=== PATIENT | female | born 2000 | race Caucasian/White ===

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

== ENCOUNTER 2019-03-16 22:18 | Emergency (ER) | payer SELFPAY ==
--- NOTE | 2019-03-16 23:00 | ER Document Report ---
ED General - General Chief Complaint: Vaginal Bleeding Stated Complaint: VAGINAL BLEEDING Time Seen by Provider: 03/16/19 22:59 TRAVEL OUTSIDE OF THE U.S. IN LAST 30 DAYS: No - HPI Patient complains to provider of: vaginal bleeding/ Notes: patient reports being approximately 6 weeks by her report started having lower abdominal cramping and vaginal bleeding this afternoon no back pain no nausea/vomiting has not established w/ obgyn yet denies urinary pain - Related Data Allergies/Adverse Reactions: No Known Allergies Allergy (Unverified 03/17/19 02:46) Past Medical History - Social History Smoking Status: Unknown if Ever Smoked Family History: Reviewed & Not Pertinent Review of Systems - Review of Systems Constitutional: No symptoms reported EENT: No symptoms reported Cardiovascular: No symptoms reported Respiratory: No symptoms reported Gastrointestinal: Abdominal pain. denies: Nausea, Vomiting Genitourinary: No symptoms reported Female Genitourinary: , Vaginal bleeding Musculoskeletal: No symptoms reported Skin: No symptoms reported Hematologic/Lymphatic: No symptoms reported Neurological/Psychological: No symptoms reported Physical Exam - Vital signs Vitals: Temp Pulse Resp BP Pulse Ox 98.3 F 90 20 132/83 H 99 03/16/19 22:30 03/16/19 22:30 03/16/19 22:30 03/16/19 22:30 03/16/19 22:30 Interpretation: Normal - General General appearance: Appears well, Alert - HEENT Head: Normocephalic, Atraumatic Eyes: Normal Pupils: PERRL - Respiratory Respiratory status: No respiratory distress Chest status: Nontender Breath sounds: Normal Chest palpation: Normal - Cardiovascular Rhythm: Regular Heart sounds: Normal auscultation Murmur: No - Abdominal Inspection: Normal Distension: No distension Bowel sounds: Normal Tenderness: Nontender Organomegaly: No organomegaly - Back Back: Normal, Nontender - Extremities General upper extremity: Normal inspection, Nontender, Normal color, Normal ROM, Normal temperature General lower extremity: Normal inspection, Nontender, Normal color, Normal ROM, Normal temperature, Normal weight bearing. No: Annie's sign - Neurological Neuro grossly intact: Yes Cognition: Normal Orientation: AAOx4 [place] Coma Scale Eye Opening: Spontaneous [place] Coma Scale Verbal: Oriented [place] Coma Scale Motor: Obeys Commands Blayne Coma Scale Total: 15 Speech: Normal Motor strength normal: LUE, RUE, LLE, RLE Sensory: Normal - Psychological Associated symptoms: Normal affect, Normal mood - Skin Skin Temperature: Warm Skin Moisture: Dry Skin Color: Normal Course - Re-evaluation Re-evalutation: 03/17/19 00:21 patient reports w/ vaginal bleeding and abd pain will confirm and then obtain an US to evaluate for location of once is confirmed 03/17/19 01:25 US with no definitive IUP located ectopic not excluded patient needs 48 hr follow up with ED or OBGYN await blood type for dispo 03/17/19 02:54 no need for rhogam urine dirty - treat w/ amoxil - Vital Signs Vital signs: Temp Pulse Resp BP Pulse Ox 98.3 F 90 20 132/83 H 99 03/16/19 22:30 03/16/19 22:30 03/16/19 22:30 03/16/19 22:30 03/16/19 22:30 - Laboratory Result Diagrams: 03/16/19 23:46 Laboratory results interpreted by me: 03/16/19 03/17/19 23:46 00:00 Beta HCG, Quant 362.71 H Urine Protein 100 H Urine Blood LARGE H Ur Leukocyte Esterase TRACE H - Diagnostic Test Radiology reviewed: Reports reviewed Discharge - Discharge Clinical Impression: Vaginal bleeding affecting early , Elevated blood pressure reading UTI (urinary tract infection) Qualifiers: Urinary tract infection type: acute cystitis Hematuria presence: without hematu romy Qualified Code(s): N30.00 - Acute cystitis without hematuria Condition: Stable Disposition: HOME, SELF-CARE Instructions: Amoxicillin ([facility]), Urinary Tract Infection ([facility]) Additional Instructions: take amoxicillin for UTI return to ED or follow up with OBGYN in 2-3 days for repeat blood work +/- ultrasound return to ED sooner if symptoms worsen Prescriptions: Amoxicillin 1 tab PO TID #21 tab Referrals: LEELEE HER MD [ACTIVE STAFF] - Follow up as needed
[2019-03-16 23:56] LABS: ABSOLUTE EOSINOPHILS # (AUTO) 0.2 10^3/uL (0.0-0.6); ABSOLUTE LYMPHOCYTES (AUTO) 3.8 10^3/uL (0.5-4.7); ABSOLUTE MONOCYTES (AUTO) 0.9 10^3/uL (0.1-1.4); ABSOLUTE NEUT (AUTO) 4.2 10^3/uL (1.7-8.2); BASOPHILS % (AUTO) 0.4 % (0-2); EOSINOPHILS % (AUTO) 2.3 % (0-6); HEMATOCRIT 39.2 % (36.0-47.0); HEMOGLOBIN 13.3 g/dL (12.0-15.5); LYMPHOCYTES % (AUTO) 41.4 % (13-45); MEAN CORPUSCULAR HEMOGLOBIN 30.8 pg (27.0-33.4); MEAN CORPUSCULAR VOLUME 91 fl (80-97); MONOCYTES % (AUTO) 9.7 % (3-13); PLATELET COUNT 239 10^3/uL (150-450); RED BLOOD COUNT 4.33 10^6/uL (3.72-5.28); RED CELL DISTRIBUTION WIDTH 13.4 % (11.5-14.0); SEGMENTED NEUTROPHILS % (AUTO) 46.2 % (42-78); TOTAL CELLS COUNTED % (AUTO) 100 %; WHITE BLOOD COUNT 9.1 10^3/uL (4.0-10.5)
--- NOTE | 2019-03-17 01:23 | RADIOLOGY REPORT (SQ) ---
EXAM DESCRIPTION: US TRANSVAGINAL COMPLETED DATE/TME: 03/17/2019 00:00 CLINICAL HISTORY: 18 years, Female, bleeding/ COMPARISON: None. TECHNIQUE: Transverse and longitudinal transvaginal sonographic images of the pelvis in a patient LIMITATIONS: None. FINDINGS: The uterus measures 7.7 x 5.2 x 3.5 cm. Cervical length is 2.8 cm. The endometrium was not measured by the civil estimator however there is no intrauterine gestational sac. The myometrium is normal. The maternal right ovary measures 3.6 x 1.7 x 1.8 cm, the left 2.7 x 1.4 x 1.6 cm. Normal flow to each ovary. There is a questionable subcentimeter cystic focus of the right ovary. This is nonspecific. No free fluid IMPRESSION: There is no intrauterine gestational sac at this time. Correlate with beta hCG levels. Ectopic cannot be excluded based on this exam. Close obstetric follow-up recommended. Questionable subcentimeter right ovarian cyst. No free fluid copyright 2010 [employer]- All Rights Reserved
[2019-03-17 02:22] LABS: APPEARANCE,URINE CLOUDY; BILIRUBIN,URINE NEGATIVE (NEGATIVE); GLUCOSE, URINE NEGATIVE (NEGATIVE); KETONES,URINE NEGATIVE (NEGATIVE); LEUKOCYTE ESTERASE,URINE TRACE (NEGATIVE); NITRITE,URINE NEGATIVE (NEGATIVE); PROTEIN,URINE 100 mg/dL (NEGATIVE); URINE SPECIFIC GRAVITY 1.018; UROBILINOGEN,URINE NEGATIVE mg/dL (<2.0)
[2019-03-17 02:24] LABS: COLOR,URINE DARK YELLOW
[2019-03-17 03:09] VITALS: BP 135/73
== END 2019-03-17 03:09 | disposition home or self-care (01) ==
LOC: ER 22:18
DX: O20.9 Hemorrhage in early pregnancy, unspecified (principal); R03.0 Elevated blood-pressure reading, without diagnosis of hypertension; O23.11 Infections of bladder in pregnancy, first trimester; N30.00 Acute cystitis without hematuria; Z3A.01 Less than 8 weeks gestation of pregnancy
CPT/HCPCS: 36415; 76817; 81001; 84702; 85025; 86900; 86901; 93976; 99284

== ENCOUNTER 2019-07-06 12:23 | Emergency (ER) | payer MEDICAID ==
[2019-07-06 13:09] VITALS: BP 144/84
[2019-07-06] MEDS ORDERED: ACETAMINOPHEN 325 MG TABLET PO ONE (13:16)
--- NOTE | 2019-07-06 13:21 | ER Document Report ---
HPI - HPI Patient complains to provider of: Jaw pain Time Seen by Provider: 07/06/19 13:16 Onset: This morning Onset/Duration: Sudden Quality of pain: Achy Pain Level: 4 Context: 18-year-old female presented to ED for jaw pain. She states she opened her mouth when she yawned and her jaw stuck open. She states it did close back and she is able to open and close her jaw but it hurts. It does pop loudly when she opens and shuts her mouth. I have spoken with Dr. Elias my covering doctor at this time. He stated that there is no reason to do any x-rays or any test at this time treat the pain and have her follow-up with a dentist. He states there is no need for x-rays at this time as it is back in place. Associated Symptoms: Other - Pain with opening and closing her mouth Exacerbated by: Other - Opening closing mouth Relieved by: Denies Similar symptoms previously: No Recently seen / treated by doctor: No - ROS ROS below otherwise negative: Yes - CONSTITUTIONAL Constitutional: DENIES: Fever, Chills - EENT Notes: Right jaw pain - NEURO Neurology: DENIES: Headache, Weakness, Vision blurred, Dizzinesss / Vertigo - CARDIOVASCULAR Cardiovascular: DENIES: Chest pain - RESPIRATORY Respiratory: DENIES: Trouble Breathing, Coughing - GASTROINTESTINAL Gastrointestinal: DENIES: Abdominal Pain, Nausea, Patient vomiting, Diarrhea, Constipation, Black / Bloody Stools - URINARY Urinary: DENIES: Dysuria, Urgency, Frequency - REPRODUCTIVE Reproductive: REPORTS: :. DENIES: Postmenopausal, Abnormal bleeding / discharge - DERM Skin Color: Normal Skin Problems: None Past Medical History - General Information source: Patient - Social History Smoking Status: Never Smoker Frequency of alcohol use: None Drug Abuse: None Lives with: Family Family History: Reviewed & Not Pertinent Patient has suicidal ideation: No Patient has homicidal ideation: No - Past Medical History Cardiac Medical History: Reports: None Pulmonary Medical History: Reports: None EENT Medical History: Reports: None Neurological Medical History: Reports: None Endocrine Medical History: Reports: None Renal/ Medical History: Reports: None Malignancy Medical History: Reports: None GI Medical History: Reports: None Musculoskeletal Medical History: Reports None Skin Medical History: Reports None Psychiatric Medical History: Reports: None Traumatic Medical History: Reports: None Infectious Medical History: Reports: None Surgical Hx: Negative Past Surgical History: Reports: None - Immunizations Immunizations up to date: Yes Hx Diphtheria, Pertussis, Tetanus Vaccination: Yes Vertical Provider Document - CONSTITUTIONAL Agree With Documented VS: Yes Exam Limitations: No Limitations General Appearance: WD/WN, No Apparent Distress - INFECTION CONTROL TRAVEL OUTSIDE OF THE [place].S. IN LAST 30 DAYS: No - HEENT HEENT: Atraumatic, Normocephalic Notes: Jaw pain to the right TMJ able to open and close mouth with no problems still pops when she opens her mouth wide - NECK Neck: Normal Inspection - RESPIRATORY Respiratory: Breath Sounds Normal, No Respiratory Distress, Chest Non-Tender - CARDIOVASCULAR Cardiovascular: Regular Rate, Regular Rhythm, No Murmur - GI/ABDOMEN Gastrointestinal: Abdomen Soft, Abdomen Non-Tender, No Organomegaly, Normal Bowel Sounds - BACK Back: Normal Inspection - MUSCULOSKELETAL/EXTREMETIES Musculoskeletal/Extremeties: MAEW, FROM, Non-Tender - NEURO Level of Consciousness: Awake, Alert, Appropriate Motor/Sensory: No Motor Deficit, No Sensory Deficit, No Pronator Drift Deep Tendon Reflexes: 2+ - DERM Integumentary: Warm, Dry, No Rash Course - Vital Signs Vital signs: Temp Pulse Resp BP Pulse Ox 98.6 F 98 H 18 144/84 H 99 07/06/19 13:06 07/06/19 13:06 07/06/19 13:06 07/06/19 13:06 07/06/19 13:06 Discharge - Discharge Clinical Impression: Right jaw pain Condition: Stable Disposition: HOME, SELF-CARE Additional Instructions: You were seen today for jaw pain to the right side of your jaw. You stated when you yawned real wide the jaw was stuck open but you have now since then been able to close her jaw. You are able to open and close her jaw completely at this time. Is important that you do not open your mouth is wide until you have been to a dentist. Please do not chew gum. Acetaminophen Acetaminophen may be taken for pain relief or fever control. It's much safer than aspirin, offering a wider range of "safe" dosages. It is safe during . Some brand names are Tylenol, Panadol, Datril, Anacin 3, Tempra, and Liquiprin. Acetaminophen can be repeated every four hours. The following are maximum recommended dosages: WEIGHT Dose Drops Elixir Chewable(80mg) (LBS.) drprs=droppers tsp=teaspoon 6 40 mg .4 ml (1/2) 6-11 80 mg .8 ml (full) 1/2 tsp 1 tab 12-16 120 mg 1 1/2 drprs 3/4 tsp 1 1/2 tabs 17-23 160 mg 2 drprs 1 tsp 2 tabs 24-30 240 mg 3 drprs 1 1/2 tsp 3 tabs 30-35 320 mg 2 tsp 4 tabs 36-41 360 mg 2 1/4 tsp 4 1/2 tabs 42-47 400 mg 2 1/2 tsp 5 tabs 48-53 480 mg 3 tsp 6 tabs 54-59 520 mg 3 1/4 tsp 6 1/2 tabs 60-64 560 mg 3 1/2 tsp 7 tabs 65-70 600 mg 3 3/4 tsp 7 1/2 tabs 71-76 640 mg 4 tsp 8 tabs 77-82 720 mg 4 1/2 tsp 9 tabs 83-88 800 mg 5 tsp 10 tabs >89 pounds or adults 650 mg to 900 mg Acetaminophen can be repeated every four hours. Maximum daily dose not to exceed 4000 mg. These maximum recommended dosages are slightly higher than the dosages writ ten on the product container, but these dosages are very safe and well below the toxic dosage for acetaminophen. TOOTHACHE: Your pain is due to dental decay. The tooth must be repaired in order for you to feel better. You will, therefore, be referred to a dentist. We do not have dentists on the staff at [facility]. Severe swelling or drainage around a tooth usually means a dental abscess. This also requires evaluation and treatment by the dentist, but antibiotics may be prescribed while awaiting dental treatment. You should be rechecked immediately if you develop major swelling of the face, increasing pain, a lump in the jaw or gums, headache, difficulty swallowing, or fever. FOLLOW-UP CARE: You have been referred for follow-up care to the dentists listed below. Call the dentists office for an appointment as you were instructed or within the next two days. If you experience worsening or a significant change in your symptoms, notify the physician immediately or return to the Emergency Department at any time for re-evaluation. [facility] [place] [id number] [place] [address] [facility] [address] [facility] [address] [facility], [facility] [address] [facility] [email or web address] [address] [place] [address] Saturday- 8:00am to 5:00 pm Will see patients from other [facility]. Charges based on income and family size and accepts Medicare, Medicaid, and Insurances Will pull molars [facility] [address] Hours of Operation 8:00 am - 4:30 pm weekdays The following dental offices accept Medicaid: [facility] Dr. Cortez Dr. Andrews Dr. Calero Dr. Batres Robbie [place], [place], and [facility] oral surgery Dr. Bowles ([place]) Dr. Leigh ([place]) [facility] Drs. Jaramillo ([place]) Dr. Thornton ([place]) [facility] Dr. Mendez ([place]) Drs. Maharaj and ([place]) Medicaid Care Line Forms: Elevated Blood Pressure
== END 2019-07-06 13:27 | disposition home or self-care (01) ==
LOC: ER 12:23
DX: O26.899 Other specified pregnancy related conditions, unspecified trimester (principal); R68.84 Jaw pain; Z3A.00 Weeks of gestation of pregnancy not specified
CPT/HCPCS: 99283; J3490

== ENCOUNTER 2019-12-23 14:17 | Outpatient (CLI) | payer MEDICAID ==
--- NOTE | 2019-12-23 14:58 | Non Stress Test Report ---
Non Stress Test Datetime Report Generated by CPN: 12/23/2019 14:58 INDICATION Indication for Study (NST) Other: Provider Order VITAL SIGNS Temperature - NST: 98.1 Pulse - NST: 98 RESP - NST: 16 NBPSYS NST: 130 NBPDIA NST: 71 MONITORING Monitor Explained: Monitor Explained; Test Explained; Patient Verbalized Understanding Time on Monitor: 12/23/2019 14:27 Time off Monitor: 12/23/2019 14:49 NST Duration: 22 NST INTERVENTIONS NST Interventions: PO Hydration Physician Notified NST: C.Mendosa,CNM BABY A: [id number] BABY A Movement : Present Contraction Frequency : None FHR Baseline : 130 Accelerations : 15X15 Decelerations : None Variability : Moderate 6-25bpm NST Review: Meets Criteria for Reactive NST NST Review and Verified By : PAUL Ward NST Results: Reactive NST REPORT Report Trigger: Send Report
== END 2019-12-23 14:54 | disposition home or self-care (01) ==
LOC: LC 14:17
PROVIDERS: ATTEND Obstetrics & Gynecology
DX: O48.0 Post-term pregnancy (principal); Z3A.40 40 weeks gestation of pregnancy
CPT/HCPCS: 59025

== ENCOUNTER 2019-12-24 12:42 | Inpatient (IN) | payer MEDICAID ==
[2019-12-24] MEDS ORDERED: RINGERS SOLUTION,LACTATED 1,000 ML IV PRN (13:16)
[2019-12-24 13:28] LABS: APPEARANCE,URINE SLIGHTLY-CLOUDY; BILIRUBIN,URINE NEGATIVE (NEGATIVE); COLOR,URINE YELLOW; GLUCOSE, URINE NEGATIVE (NEGATIVE); KETONES,URINE NEGATIVE (NEGATIVE); LEUKOCYTE ESTERASE,URINE LARGE (NEGATIVE); NITRITE,URINE NEGATIVE (NEGATIVE); PROTEIN,URINE NEGATIVE (NEGATIVE); URINE SPECIFIC GRAVITY 1.014; UROBILINOGEN,URINE NEGATIVE mg/dL (<2.0)
--- NOTE | 2019-12-24 13:29 | Admission Physical ---
Datetime Report Generated by CPN: 12/24/2019 13:29 CURRENT ADMISSION Hx Assessment: The History has been Reviewed and is Current Chief Complaint: Uterine Contractions Indication for Induction: Not Applicable Admit Impression : Postterm, Intrauterine ; Active Labor; Intact Membranes Admit Plan: Admit to Unit; Initiate Labor Protocol ALLERGIES Medication Allergies: No Medication Allergies: No Known Allergies (12/24/2019) Latex: No Latex Allergies OBSTETRICAL HISTORY EDC: 12/21/2019 00:00 : 2 Para: 0 Term: 0 : 0 Ectopic: 0 Livin Cesareans: 0 VBACs: 0 Multiple Births: 0 Gestational Diabetes: No Rh Sensitization: No Incompetent Cervix: No RIOS: No Infertility: No ART Treatment: No Uterine Anomaly: No IUGR: No Hx Previous C/S: No Macrosomia: No Hx Loss/Stillborn: No PIH: No Hx : No Placenta Previa/Abruption: No Depression/PP Depression: No PTL/PROM: No Post Hemorrhage: No Current Procedures: Ultrasound; NST Obstetrical History Comments: G1-Current SEE RECORDS Alcohol: No Marijuana : No Cocaine: No Other Illicit Drugs: No Cigarettes: Never Smoker. [id number] MEDICAL HISTORY Diabetes: No Blood Transfusion: No Pulmonary Disease (Asthma, TB): No Breast Disease: No Hypertension: No Director Pediatric Surgery: No Heart Disease: No Hosp/Surgery: No Autoimmune Disorder: No Anesthetic Complications: No Kidney Disease: No Abnormal Pap Smear: No Neuro/Epilepsy: No Psychiatric Disorders: Yes Other Medical Diseases: No Hepatitis/Liver Disease: No Significant Family History: No Varicosities/Phlebitis: No Trauma/Violence : No Thyroid Dysfunction: No Medical History Comments: Anxiety INFECTIOUS HISTORY Gonorrhea: No Genital Herpes: No Chlamydia: No Tuberculosis: No Syphilis: No Hepatitis: No HIV/AIDS Exposure: No Rash or Viral Illness: No HPV: No PHYSICAL EXAM General: Normal HEENT: Deferred Neurologic: Normal Thyroid: Deferred Heart: Normal Lungs: Normal Breast: Deferred Back: Normal Abdomen: Normal Genitourinary Exam: Normal Extremities: Normal DTRs: Normal Pelvic Type: Adequate Physical Exam Comments: GBS neg Baby up for adoption Plans epidural FETUS A EGA: 40.3 Monitoring: External US Variability: Moderate 6-25bpm Accelerations: 15X15 FHR Category: Category I Admit Comment: Seen in office yesterday, now in labor and requesting epidural when available. Cat 1 strip, will ROM when comfortable with epidural. FOB at BS PLANS FOR LABOR AND DELIVERY Labor and Delivery: None Pain Management: Epidural Feeding Preference: Formula Benefit of Breast Feed Discussed: Yes Circumcision: N/A INFORMED CONSENT Assignment: Talib Ramos, MD Signature: with User ID: [email or web address] : with User ID: [email or web address]
[2019-12-24 13:47] LABS: ABSOLUTE LYMPHOCYTES (AUTO) 1.8 10^3/uL (0.5-4.7); ABSOLUTE NEUT (AUTO) 12.6 10^3/uL (1.7-8.2); BASOPHILS % (AUTO) 0.2 % (0-2); EOSINOPHILS % (AUTO) 0.3 % (0-6); HEMATOCRIT 38.7 % (36.0-47.0); LYMPHOCYTES % (AUTO) 11.8 % (13-45); MEAN CORPUSCULAR HGB CONC 33.6 g/dL (32.0-36.0); MEAN CORPUSCULAR VOLUME 92 fl (80-97); MONOCYTES % (AUTO) 6.7 % (3-13); PLATELET COUNT 268 10^3/uL (150-450); RED CELL DISTRIBUTION WIDTH 14.2 % (11.5-14.0); TOTAL CELLS COUNTED % (AUTO) 100 %; WHITE BLOOD COUNT 15.6 10^3/uL (4.0-10.5)
[2019-12-24 13:47] LABS: URINE AMPHETAMINES SCREEN NEGATIVE; URINE BARBITURATES SCREEN NEGATIVE; URINE BENZODIAZEPINES SCREEN NEGATIVE; URINE COCAINE SCREEN NEGATIVE; URINE MARIJUANA (THC) SCREEN NEGATIVE; URINE METHADONE SCREEN NEGATIVE; URINE PHENCYCLIDINE SCREEN NEGATIVE
[2019-12-24] MEDS ORDERED: MISOPROSTOL 0.2 MG TABLET ONE (13:47)
[2019-12-24] MEDS ORDERED: OXYTOCIN 10 UNIT/ML VIAL ONE (13:47)
[2019-12-24] MEDS ORDERED: EPHEDRINE SULFATE INJ 50 MG/1 ML AMPULE ONE (13:47)
[2019-12-24] MEDS ORDERED: FENTANYL/BUPIVACAINE/NS/PF 300 MCG/150 ML RTUINJ EPI ONE (13:47)
[2019-12-24] MEDS ORDERED: OXYTOCIN/0.9 % SODIUM CHLORIDE 30 UNIT/500 ML RTUINJ ONE (13:48)
[2019-12-24] MEDS ORDERED: LIDOCAINE 1% INJ-PF (10 MG/ML) 30 ML SDV ONE (13:48)
[2019-12-24] MEDS ORDERED: ROPIVACAINE HCL 0.2% INJ/PF (2 MG/ML) 20 ML SDV ONE (13:48)
--- NOTE | 2019-12-24 14:59 | L&D Progress Notes ---
PROGRESS NOTES Datetime Report Generated by CPN: 12/24/2019 14:58 PROGRESS NOTE Impression: Reassuring Heart Rate Procedures: Artificial ROM; Sterile Vag Exam Plan: Continue Present Management; Anticipate Vaginal Delivery Vital Signs : Reviewed; Within Normal Limits Comment: comfortable with epidural, FOB at bedside, VE 7/100/vtx/-2, + bloody show, AROM, clear fluid anticipate LAST VAGINAL EXAM-NURSING Nursing Exam Dilitation: 7.0 Nursing Exam Effacement: 100 Nursing Exam Station: -2 MEMBRANES Amniotic Fluid Color: Clear FETUS A Variability: Moderate 6-25bpm Accelerations: 15X15 Decelerations: None FHR Category: Category I : 40.3 SIGNATURE SIGNATURE: ,[id number] Assignment: Talib Ramos MD Signature: with User ID: [email or web address] : with User ID: [email or web address]
[2019-12-24] MEDS ORDERED: ONDANSETRON HCL INJ/PF 4 MG/2 ML SDV ONE (15:04)
[2019-12-24] MEDS ORDERED: ONDANSETRON HCL INJ/PF 4 MG/2 ML SDV IV ONE (15:42)
[2019-12-24] MEDS ORDERED: DIPH/PERTUSS(ACELL)/TETANUS VAC/PF 0.5 ML SYR (>=10YO) IM PRN (18:45)
[2019-12-24] MEDS ORDERED: BENZOCAINE/MENTHOL AEROSOL SPRAY 56 ML TOP PRN (18:45)
[2019-12-24] MEDS ORDERED: NA PHOS,M-B/NA PHOS,DI-BA (ADULT) 133 ML ENEMA PR PRN (18:45)
[2019-12-24] MEDS ORDERED: MEASLES,MUMPS&RUBELLA VACC/PF 0.5 ML VIAL SUBCUT PRN (18:45)
[2019-12-24] MEDS ORDERED: PSEUDOEPHEDRINE HCL 30 MG TABLET PO PRN (18:45)
[2019-12-24] MEDS ORDERED: DIPHENHYDRAMINE HCL 25 MG CAPSULE PO PRN (18:45)
[2019-12-24] MEDS ORDERED: PROMETHAZINE HCL INJ 25 MG/1 ML VIAL IV PRN (18:45)
[2019-12-24] MEDS ORDERED: MAGNESIUM HYDROXIDE SUSP 30 ML UDCUP PO PRN (18:45)
[2019-12-24] MEDS ORDERED: PROMETHAZINE HCL 25 MG SUPP.RECT PR PRN (18:45)
[2019-12-24] MEDS ORDERED: DIBUCAINE 1% OINTMENT 28 GM TP PRN (18:45)
[2019-12-24] MEDS ORDERED: OXYTOCIN/0.9 % SODIUM CHLORIDE 30 UNIT/500 ML RTUINJ IV PRN (18:45)
[2019-12-24] MEDS ORDERED: ZOLPIDEM TARTRATE 5 MG TABLET PO PRN (18:45)
[2019-12-24] MEDS ORDERED: PROMETHAZINE HCL 25 MG TABLET PO PRN (18:45)
[2019-12-24] MEDS ORDERED: ACETAMINOPHEN 650 MG SUPP.RECT PR PRN (18:45)
[2019-12-24] MEDS ORDERED: GLYCERIN/WITCH HAZEL LEAF 1 EACH MED..WIPE TP PRN (18:45)
[2019-12-24] MEDS: FAMOTIDINE 20 MG TABLET PO SCH (22:19)
[2019-12-24] MEDS: IBUPROFEN 800 MG TABLET PO SCH (22:20)
[2019-12-25] MEDS: ACETAMINOPHEN WITH CODEINE #3 TABLET PO PRN ×2 (05:36→11:54)
[2019-12-25] MEDS: IBUPROFEN 800 MG TABLET PO SCH ×2 (05:36→14:25)
[2019-12-25 05:53] VITALS: BP 122/83
[2019-12-25 08:16] LABS: HEMATOCRIT 34.3 % (36.0-47.0); HEMOGLOBIN 11.6 g/dL (12.0-15.5); MEAN CORPUSCULAR HEMOGLOBIN 31.5 pg (27.0-33.4); MEAN CORPUSCULAR HGB CONC 33.8 g/dL (32.0-36.0); MEAN CORPUSCULAR VOLUME 93 fl (80-97); PLATELET COUNT 210 10^3/uL (150-450); RED BLOOD COUNT 3.68 10^6/uL (3.72-5.28); RED CELL DISTRIBUTION WIDTH 14.2 % (11.5-14.0); WHITE BLOOD COUNT 14.2 10^3/uL (4.0-10.5)
[2019-12-25] MEDS: FAMOTIDINE 20 MG TABLET PO SCH (09:54)
[2019-12-25] MEDS: DOCUSATE SODIUM 100 MG CAPSULE PO SCH ×2 (09:54→17:12)
[2019-12-25] MEDS: FERROUS SULFATE 325 MG TABLET PO SCH ×2 (09:54→17:12)
[2019-12-25] MEDS ORDERED: SENNOSIDES/DOCUSATE 8.6-50 MG 1 EACH TABLET PO SCH (10:00)
[2019-12-25] MEDS ORDERED: PRENATAL VITAMIN W DHA CAPSULE PO SCH (10:00)
--- NOTE | 2019-12-25 10:03 | PDOC DISCHARGE SUMMARY ---
Impression - Admit/DC Date/PCP Admission Date/Primary Care Provider: 12/24/19 13:23 Discharge Date: 12/25/19 - PP Day#1, s/p . pt is a surrogate. Desires to go home this evening after 24 hours. A+, rubella Immune - Discharge Diagnosis (1) (normal spontaneous vaginal delivery) Is this a current diagnosis for this admission?: Yes (2) Obstetric vaginal laceration with first degree perineal laceration Is this a current diagnosis for this admission?: Yes (3) Surrogate in third trimester Is this a current diagnosis for this admission?: Yes - Additional Information Resuscitation Status: Full Code Discharge Diet: As Tolerated, Regular Discharge Activity: Activity As Tolerated, No Lifting Over 10 Pounds, Pelvic Rest Prescriptions: Ibuprofen [Motrin 800 mg Tablet] 800 mg PO Q8 #60 tablet Home Medications: Prenat 115/Iron Fum/Folic/Dss [ 19 Tablet] 1 tab PO DAILY 12/23/19 Ibuprofen [Motrin 800 mg Tablet] 800 mg PO Q8 #60 tablet 12/25/19 HPI Reason(s) for Admission: Onset of Labor Intrapartum Procedure(s): Spontaneous Vaginal Delivery Complication(s): Laceration-Vaginal Laceration-Degree: 1st Hospital Course Hospital Course: normal Results Laboratory Results: WBC 14.2 10^3/uL (4.0-10.5) H 12/25/19 07:36 RBC 3.68 10^6/uL (3.72-5.28) L 12/25/19 07:36 Hgb 11.6 g/dL (12.0-15.5) L 12/25/19 07:36 Hct 34.3 % (36.0-47.0) L 12/25/19 07:36 MCV 93 fl (80-97) 12/25/19 07:36 MCH 31.5 pg (27.0-33.4) 12/25/19 07:36 MCHC 33.8 g/dL (32.0-36.0) 12/25/19 07:36 RDW 14.2 % (11.5-14.0) H 12/25/19 07:36 Plt Count 210 10^3/uL (150-450) 12/25/19 07:36 Lymph % (Auto) 11.8 % (13-45) L 12/24/19 13:28 Borden % (Auto) 6.7 % (3-13) 12/24/19 13:28 Eos % (Auto) 0.3 % (0-6) 12/24/19 13:28 Baso % (Auto) 0.2 % (0-2) 12/24/19 13:28 Absolute Neuts (auto) 12.6 10^3/uL (1.7-8.2) H 12/24/19 13:28 Absolute Lymphs (auto) 1.8 10^3/uL (0.5-4.7) 12/24/19 13:28 Absolute Monos (auto) 1.0 10^3/uL (0.1-1.4) 12/24/19 13:28 Absolute Eos (auto) 0.0 10^3/uL (0.0-0.6) 12/24/19 13:28 Absolute Basos (auto) 0.0 10^3/uL (0.0-0.2) 12/24/19 13:28 Seg Neutrophils % 81.0 % (42-78) H 12/24/19 13:28 Urine Color YELLOW 12/24/19 12:50 Urine Appearance SLIGHTLY-CLOUDY 12/24/19 12:50 Urine pH 7.0 (5.0-9.0) 12/24/19 12:50 Ur Specific Sandy 1.014 12/24/19 12:50 Urine Protein NEGATIVE mg/dL (NEGATIVE) 12/24/19 12:50 Urine Glucose (UA) NEGATIVE mg/dL (NEGATIVE) 12/24/19 12:50 Urine Ketones NEGATIVE mg/dL (NEGATIVE) 12/24/19 12:50 Urine Blood SMALL (NEGATIVE) H 12/24/19 12:50 Urine Nitrite NEGATIVE (NEGATIVE) 12/24/19 12:50 Urine Bilirubin NEGATIVE (NEGATIVE) 12/24/19 12:50 Urine Urobilinogen NEGATIVE mg/dL (<2.0) 12/24/19 12:50 Ur Leukocyte Esterase LARGE (NEGATIVE) H 12/24/19 12:50 Urine Ascorbic Acid NEGATIVE (NEGATIVE) 12/24/19 12:50 Urine Opiates Screen NEGATIVE 12/24/19 12:50 Urine Methadone Screen NEGATIVE 12/24/19 12:50 Ur Barbiturates Screen NEGATIVE 12/24/19 12:50 Ur Phencyclidine Scrn NEGATIVE 12/24/19 12:50 Ur Amphetamines Screen NEGATIVE 12/24/19 12:50 U Benzodiazepines Scrn NEGATIVE 12/24/19 12:50 Urine Cocaine Screen NEGATIVE 12/24/19 12:50 U Marijuana (THC) Screen NEGATIVE 12/24/19 12:50 RPR NONREACTIVE (NONREACTIVE) 12/24/19 13:28 Blood Type A POSITIVE 12/24/19 13:28 Antibody Screen NEGATIVE 12/24/19 13:28 Plan Plan of Treatment: d/c home, f/up with [facility] in 4 wks for PP check Time Spent: Less than 30 Minutes
--- NOTE | 2019-12-29 13:53 | Delivery Summary ---
Del Sum A-C Datetime Report Generated by CPN: 12/29/2019 13:52 DELIVERY PERSONNEL DELIVERY PERSONNEL: [id number] Delivery Doctor:: Talib Ramos MD Labor and Delivery Nurse:: Maddie Ross RN Nursery Nurse:: Kailey Costa RN Director Of Marketing/FUEL EFFICIENT AUTOMOBILE DESIGNER: Anjelica Marquez, STEAM PLANT RECORDS CLERK MATERNAL INFORMATION Delivery Anesthesia: Epidural Medications After Delivery: Pitocin Bolus-Please Comment; Pitocin 30 Units in 500ml NS/D5W Meds After Delivery Comment: Pitocin 30 units in 500 ml Delivery QBL: 200 Maternal Complications: None LABOR SUMMARY EDC: 12/21/2019 00:00 No. Babies in Womb: 1 Attempted: No Labor Anesthesia: Epidural LABOR INFORMATION Reason for Induction: Not Applicable Onset of Labor: 12/24/2019 12:00 Complete Dilatation: 12/24/2019 16:50 Oxytocin: N/A Group B Beta Strep: Negative Antibiotics # of Doses: N/A Name of Antibiotic Given: N/A Steroids Given: None Reason Steroids Not Administered: Not Applicable MEMBRANES Membranes Rupture Method: Artificial Rupture of Membranes: 12/24/2019 14:54 Length of Rupture (hr): 3.57 Amniotic Fluid Color: Clear Amniotic Fluid Amount: Small Amniotic Fluid Odor: Normal STAGES OF LABOR Stage 1 hr: 4 Stage 1 min: 50 Stage 2 hr: 1 Stage 2 min: 38 Stage 3 hr: 0 Stage 3 min: 4 Total Time in Labor hr: 6 Total Time in Labor min: 32 VAGINAL DELIVERY Episiotomy: None Laceration #1: Perineal; Vaginal Laceration Extension #1: First Degree Laceration Repair: Yes Laceration Repair Note: 2-0 vicryl Sponge Count Correct: N/A Sharps Count Correct: N/A CSECTION DELIVERY Primary Indication: N/A Secondary Indication: N/A CSection Incidence: N/A Labor: N/A Elective: N/A CSection Incision: N/A BABY A INFORMATION Infant Delivery Date/Time: 12/24/2019 18:28 Method of Delivery: Vaginal Nurse Controlled Delivery: No Born in Route : No : N/A Forceps: N/A Vacuum Extraction: N/A Shoulder Dystocia : No PRESENTATION/POSITION BABY A Presentation: Cephalic Cephalic Presentation: Vertex Vertex Position: Right Occipital Anterior Breech Presentation: N/A PLACENTA INFORMATION BABY A Placenta Delivery Time : 12/24/2019 18:32 Placenta Method of Delivery: Spontaneous Placenta Status: Delivered SCORES BABY A Heart Rate 1 min: >100 bpm Resp Effort 1 min: Good Cry Reflex Irritability 1 min: Cough or Sneeze or Pulls Away Muscle Tone 1 min: Active Motion Color 1 min: Blue/Pale Resuscitation Effort 1 min: Tactile Stimulation SCORE 1 MIN: 8 Heart Rate 5 min: >100 bpm Resp Effort 5 min: Good Cry Reflex Irritability 5 min: Cough or Sneeze or Pulls Away Muscle Tone 5 min: Active Motion Color 5 min: Completely [place] Resuscitation Effort 5 min: Tactile Stimulation SCORE 5 MIN: 10 INFORMATION BABY A Gestational Age at Delivery: 40.3 Gestational Status: Full Term- 39- 40.6 Weeks Outcome : Liveborn Condition : Stable Sex: Female IDENTIFICATION BABY A Verification Date/Time: 12/24/2019 18:39 ID Band Number: [id number] Mother's Name Verified: Yes Infant RN Verifying : Lopez Costa, RN/ AJohan Vandana, RN WEIGHT/LENGTH BABY A Birthweight (gm): 3660 Weight (lb): 8 Infant Weight (oz): 1 Infant Length (in): 20.00 Infant Length (cm): 50.80 CORD INFORMATION BABY A No. Cord Vessels: 3 Nuchal Cord : N/A Cord Blood Taken: Yes-For Storage (Mom's Blood type +) Infant Suction: None ASSESSMENT BABY A Infant Complications: None Physical Findings at Delivery: Within Normal Limits Skin to Skin: No Transferred To: Remains with Mother BABY B INFORMATION : N/A SIGNATURES Signature: with User ID: [email or web address]
--- NOTE | 2019-12-29 14:04 | Delivery Summary ---
Del Sum A-C Datetime Report Generated by CPN: 12/29/2019 14:04 DELIVERY PERSONNEL DELIVERY PERSONNEL: [id number] Delivery Doctor:: Talib Ramos MD Labor and Delivery Nurse:: Maddie Ross RN Nursery Nurse:: Kailey Costa RN Biometric Technician/IMPORT DISPATCHER: Anjelica Marquez, WASHROOM ATTENDANT MATERNAL INFORMATION Delivery Anesthesia: Epidural Medications After Delivery: Pitocin Bolus-Please Comment; Pitocin 30 Units in 500ml NS/D5W Meds After Delivery Comment: Pitocin 30 units in 500 ml Delivery QBL: 200 Maternal Complications: None LABOR SUMMARY EDC: 12/21/2019 00:00 No. Babies in Womb: 1 Attempted: No Labor Anesthesia: Epidural LABOR INFORMATION Reason for Induction: Not Applicable Onset of Labor: 12/24/2019 12:00 Complete Dilatation: 12/24/2019 16:50 Oxytocin: N/A Group B Beta Strep: Negative Antibiotics # of Doses: N/A Name of Antibiotic Given: N/A Steroids Given: None Reason Steroids Not Administered: Not Applicable MEMBRANES Membranes Rupture Method: Artificial Rupture of Membranes: 12/24/2019 14:54 Length of Rupture (hr): 3.57 Amniotic Fluid Color: Clear Amniotic Fluid Amount: Small Amniotic Fluid Odor: Normal STAGES OF LABOR Stage 1 hr: 4 Stage 1 min: 50 Stage 2 hr: 1 Stage 2 min: 38 Stage 3 hr: 0 Stage 3 min: 4 Total Time in Labor hr: 6 Total Time in Labor min: 32 VAGINAL DELIVERY Episiotomy: None Laceration #1: Perineal; Vaginal Laceration Extension #1: First Degree Laceration Repair: Yes Laceration Repair Note: 2-0 vicryl Sponge Count Correct: N/A Sharps Count Correct: N/A CSECTION DELIVERY Primary Indication: N/A Secondary Indication: N/A CSection Incidence: N/A Labor: N/A Elective: N/A CSection Incision: N/A BABY A INFORMATION Infant Delivery Date/Time: 12/24/2019 18:28 Method of Delivery: Vaginal Nurse Controlled Delivery: No Born in Route : No : N/A Forceps: N/A Vacuum Extraction: N/A Shoulder Dystocia : No PRESENTATION/POSITION BABY A Presentation: Cephalic Cephalic Presentation: Vertex Vertex Position: Right Occipital Anterior Breech Presentation: N/A PLACENTA INFORMATION BABY A Placenta Delivery Time : 12/24/2019 18:32 Placenta Method of Delivery: Spontaneous Placenta Status: Delivered SCORES BABY A Heart Rate 1 min: >100 bpm Resp Effort 1 min: Good Cry Reflex Irritability 1 min: Cough or Sneeze or Pulls Away Muscle Tone 1 min: Active Motion Color 1 min: Blue/Pale Resuscitation Effort 1 min: Tactile Stimulation SCORE 1 MIN: 8 Heart Rate 5 min: >100 bpm Resp Effort 5 min: Good Cry Reflex Irritability 5 min: Cough or Sneeze or Pulls Away Muscle Tone 5 min: Active Motion Color 5 min: Completely [place] Resuscitation Effort 5 min: Tactile Stimulation SCORE 5 MIN: 10 INFORMATION BABY A Gestational Age at Delivery: 40.3 Gestational Status: Full Term- 39- 40.6 Weeks Outcome : Liveborn Condition : Stable Sex: Female IDENTIFICATION BABY A Verification Date/Time: 12/24/2019 18:39 ID Band Number: [id number] Mother's Name Verified: Yes Infant RN Verifying : Lopez Costa, RN/ AJohan Vandana, RN WEIGHT/LENGTH BABY A Birthweight (gm): 3660 Weight (lb): 8 Infant Weight (oz): 1 Infant Length (in): 20.00 Infant Length (cm): 50.80 CORD INFORMATION BABY A No. Cord Vessels: 3 Nuchal Cord : N/A Cord Blood Taken: Yes-For Storage (Mom's Blood type +) Infant Suction: None ASSESSMENT BABY A Infant Complications: None Physical Findings at Delivery: Within Normal Limits Skin to Skin: No Transferred To: Remains with Mother BABY B INFORMATION : N/A SIGNATURES Signature: with User ID: [email or web address]
== END 2019-12-25 18:30 | disposition home or self-care (01) | DRG 807 ==
LOC: LC 12:42 → LR 13:23 → 2S 21:22
PROVIDERS: ADMIT Obstetrics & Gynecology Gynecology; ATTEND Obstetrics & Gynecology Gynecology
PROC: 10E0XZZ Delivery of Products of Conception, External Approach (ICD-10-PCS; principal; 2019-12-24)
PROC: 0HQ9XZZ Repair Perineum Skin, External Approach (ICD-10-PCS; 2019-12-24)
PROC: 3E0234Z Introduction of Serum, Toxoid and Vaccine into Muscle, Percutaneous Approach (ICD-10-PCS; 2019-12-25)
DX: O48.0 Post-term pregnancy (principal); Z37.0 Single live birth; O99.344 Other mental disorders complicating childbirth; O70.0 First degree perineal laceration during delivery; F41.9 Anxiety disorder, unspecified; Z3A.40 40 weeks gestation of pregnancy; Z23 Encounter for immunization
CPT/HCPCS: 1967; 36415; 80307; 81005; 85025; 85027; 86592; 86850; 86900; 86901; 90715; C1758; J2405; J2590; J2795; J3010; J3490